=== PATIENT | female | born 1990 | race Hispanic/Latino ===

== ENCOUNTER 2023-11-17 22:20 | Inpatient (IN) | payer OTHER ==
[~2023-11-17] VITALS: Ht 157.5 cm; Wt 64.4 kg
[2023-11-17 22:46] VITALS: BP 143/88
[2023-11-17] MEDS ORDERED: OXYTOCIN 30UNITS IN 0.9% NaCl 500ML IV BAG As Ordered ONE (23:08)
[2023-11-17] MEDS ORDERED: UNRESOLVED CLARIFICATION ENTRY XX STA (23:18)
[2023-11-17 23:27] LABS: BASO % 0.3 % (0.0-1.0); EOS # 0.2 10^3/uL (0.0-0.5); EOS % 1.7 % (0.0-3.0); HEMATOCRIT 37.8 % (36.0-47.0); HEMOGLOBIN 13.2 g/dl (12.0-15.5); LYMPH # 3.2 10^3/uL (1.5-5.0); LYMPH % 30.9 % (24.0-44.0); MEAN CORPUSCULAR HEMOGLOBIN 30.1 pg (27.0-33.0); MEAN CORPUSCULAR HGB CONC 34.9 g/dl (32.0-36.5); MEAN CORPUSCULAR VOLUME 86.3 fl (80.0-96.0); MONO # 0.8 10^3/uL (0.0-0.8); MONO % 8.2 % (2.0-8.0); NEUTROPHILS % 58.3 % (36.0-66.0); PLATELET COUNT, AUTOMATED 196 10^3/uL (150-450); RED BLOOD COUNT 4.38 10^6/uL (4.00-5.40); WHITE BLOOD COUNT 10.2 10^3/uL (4.0-10.0)
[2023-11-17] MEDS ORDERED: LIDOCAINE 1% MDV 20ML VIAL As Ordered ONE (23:43)
[2023-11-18] VITALS (21 sets, daily range): BP systolic 63–148; BP diastolic 35–126; O2SAT 98
[2023-11-18] MEDS ORDERED: CARBOPROST TROMETHAMINE 250 MCG/ML AMP IM PRN (00:10)
[2023-11-18] MEDS ORDERED: OXYTOCIN DRIP 30 UNITS in IV 1 EA IV PRN (00:10)
[2023-11-18] MEDS: OXYTOCIN DRIP 30 UNITS in IV 1 EA IV SCH (00:47)
[2023-11-18] MEDS ORDERED: TRANEXAMIC ACID 100 MG/ML 10ML VIAL As Ordered ONE (01:04)
[2023-11-18] MEDS: OXYTOCIN DRIP 30 UNITS in IV 1 EA IV PRN (01:10)
[2023-11-18 01:52] LABS: BASO % 0.2 % (0.0-1.0); EOS # 0.1 10^3/uL (0.0-0.5); EOS % 0.6 % (0.0-3.0); HEMATOCRIT 29.5 % (36.0-47.0); LYMPH # 2.3 10^3/uL (1.5-5.0); LYMPH % 13.9 % (24.0-44.0); MEAN CORPUSCULAR HEMOGLOBIN 30.4 pg (27.0-33.0); MEAN CORPUSCULAR HGB CONC 34.6 g/dl (32.0-36.5); MEAN CORPUSCULAR VOLUME 88.1 fl (80.0-96.0); MONO # 1.1 10^3/uL (0.0-0.8); MONO % 6.3 % (2.0-8.0); NEUTROPHILS # 13.3 10^3/uL (1.5-8.5); NEUTROPHILS % 78.5 % (36.0-66.0); PLATELET COUNT, AUTOMATED 164 10^3/uL (150-450); RED BLOOD COUNT 3.35 10^6/uL (4.00-5.40); WHITE BLOOD COUNT 16.9 10^3/uL (4.0-10.0)
[2023-11-18 01:53] LABS: HEMOGLOBIN 10.2 g/dl (12.0-15.5)
[2023-11-18 02:05] LABS: Trichomonas vaginalis (AMP) NOT DETECTED (NEGATIVE)
[2023-11-18] MEDS: METHYLERGONOVINE MALEATE 0.2MG/ML 1ML VIAL IM PRN (02:15)
[2023-11-18] MEDS: TRANEXAMIC ACID INJection 1,000 MG in NS 100 ML IV PRN (02:16)
[2023-11-18 02:27] LABS: GC DNA AMPLIFICATION NEGATIVE (NEGATIVE)
[2023-11-18 02:41] LABS: INR 1.06; PARTIAL THROMBOPLASTIN TIME 24.6 SECONDS (24.8-34.2); PROTHROMBIN TIME 13.5 SECONDS (12.5-14.5)
[2023-11-18] MEDS: ceFAZolin SOD 2 GM in IV 1 EA IV ONE (02:41)
[2023-11-18] MEDS: LIDOCAINE 1% MDV 20ML VIAL SC ONE (02:42)
[2023-11-18] MEDS ORDERED: RHOGAM 300MCG (1500IU) INJ IM SCH (05:15)
[2023-11-18] MEDS ORDERED: DOCUSATE SODIUM 100MG CAPSULE PO PRN (05:15)
[2023-11-18] MEDS ORDERED: METHYLERGONOVINE MALEATE 0.2 MG TAB PO PRN (05:15)
[2023-11-18] MEDS ORDERED: DIBUCAINE 1% OINTMENT 30GM TOP PRN (05:15)
[2023-11-18] MEDS: IBUPROFEN 600MG TAB PO PRN (06:28)
[2023-11-18 08:36] LABS: HEMATOCRIT 33.2 % (36.0-47.0); HEMOGLOBIN 11.6 g/dl (12.0-15.5); MEAN CORPUSCULAR HEMOGLOBIN 29.8 pg (27.0-33.0); MEAN CORPUSCULAR HGB CONC 34.9 g/dl (32.0-36.5); MEAN CORPUSCULAR VOLUME 85.3 fl (80.0-96.0); PLATELET COUNT, AUTOMATED 132 10^3/uL (150-450); RED BLOOD COUNT 3.89 10^6/uL (4.00-5.40); WHITE BLOOD COUNT 12.3 10^3/uL (4.0-10.0)
[2023-11-18] MEDS: PRENATAL VITAMINS CHEWABLE TABLET PO SCH (09:26)
[2023-11-18] MEDS ORDERED: PRENTAB9 PO ×2 (12:42)
[2023-11-18] MEDS ORDERED: HOME MED LIST COMPLETE! XX SCH (12:45)
[2023-11-19] MEDS: ACETAMINOPHEN 500 MG TAB PO PRN (00:45)
[2023-11-19 06:00] VITALS: BP 103/58; O2SAT 99
[2023-11-19] MEDS ORDERED: INFLUENZA QUADRIVALENT PF VACCINE 0.5ML SYRINGE IM.IMMUN ONE (12:00)
[2023-11-19] MEDS ORDERED: ACET-683 PO (17:26)
[2023-11-19] MEDS ORDERED: IBUP-1022 PO (17:26)
[2023-11-20] MEDS ORDERED: MEASLES,MUMPS,RUBELLA VACCINE INJ (MMR-II) SC.IMMUN ONE (09:00)
== END 2023-11-19 18:40 | disposition home or self-care (01) | DRG 560 ==
LOC: M LDO 22:20 → M LDI 23:04 → M OBS 11-18 08:53
PROVIDERS: ADMIT Obstetrics & Gynecology; ATTEND Obstetrics & Gynecology
PROC: 10E0XZZ Delivery of Products of Conception, External Approach (ICD-10-PCS; principal; 2023-11-17)
PROC: 0KQM0ZZ Repair Perineum Muscle, Open Approach (ICD-10-PCS; 2023-11-17)
PROC: 30233N1 Transfusion of Nonautologous Red Blood Cells into Peripheral Vein, Percutaneous Approach (ICD-10-PCS; 2023-11-18)
DX: O34.211 Maternal care for low transverse scar from previous cesarean delivery (principal); O72.1 Other immediate postpartum hemorrhage; O62.3 Precipitate labor; O99.344 Other mental disorders complicating childbirth; F32.A Depression, unspecified; Z3A.38 38 weeks gestation of pregnancy; O70.1 Second degree perineal laceration during delivery; Z37.0 Single live birth; Z63.4 Disappearance and death of family member

== ENCOUNTER 2023-11-17 23:17 | Emergency (ER) | payer OTHER ==
[2023-11-18] MEDS ORDERED: PRENTAB9 PO ×2 (12:42)
[2023-11-19] MEDS ORDERED: ACET-683 PO (17:26)
[2023-11-19] MEDS ORDERED: IBUP-1022 PO (17:26)
== END 2023-11-18 00:01 | disposition left against medical advice (07) ==
LOC: M ED 23:17
DX: Z53.21 Procedure and treatment not carried out due to patient leaving prior to being seen by health care provider (principal)